=== PATIENT | male | born 1980 | race African-American/Black ===

== ENCOUNTER 2018-11-29 08:27 | Inpatient (IN) ==
[2018-11-29] MEDS ORDERED: NICODERM PATCH TD PRN (14:17)
[2018-11-29] MEDS ORDERED: TUBERSOL ID ONE (14:17)
[2018-11-29] MEDS ORDERED: DESYREL PO PRN (14:17)
[2018-11-29] MEDS ORDERED: NICOTINE GUM BUCCAL PRN (14:17)
[2018-11-29] MEDS ORDERED: SENOKOT PO PRN (14:17)
[2018-11-29] MEDS ORDERED: DULCOLAX PR PRN (14:17)
[2018-11-29] MEDS ORDERED: PHENOBARBITAL IV PRN (14:17)
[2018-11-29] MEDS ORDERED: SEROQUEL PO PRN (14:17)
[2018-11-29] MEDS ORDERED: D5W 1,000 ML IV PRN (14:17)
[2018-11-29] MEDS ORDERED: MAALOX PLUS LIQUID PO PRN (14:17)
[2018-11-29] MEDS ORDERED: MOTRIN PO PRN (14:17)
[2018-11-29] MEDS ORDERED: TYLENOL PO PRN (14:17)
[2018-11-29] MEDS ORDERED: IMODIUM PO PRN ×2 (14:17)
[2018-11-29] MEDS ORDERED: ZOFRAN IM PRN (14:17)
[2018-11-29 14:28] LABS: URINE SOURCE CLEAN CATCH
[2018-11-29 14:40] LABS: CLARITY CLEAR (CLEAR); COLOR YELLOW
[2018-11-29 14:41] LABS: BILIRUBIN URINE NEGATIVE (NEGATIVE); BLOOD URINE 2+ (NEGATIVE); GLUCOSE URINE NEGATIVE (NEGATIVE); KETONE URINE NEGATIVE (NEGATIVE); LEUKOCYTES URINE TRACE (NEGATIVE); NITRITE URINE NEGATIVE (NEGATIVE); PH URINE 6.5; PROTEIN URINE TRACE mg/dL (NEGATIVE); UROBILINOGEN URINE NORMAL
[2018-11-29] MEDS ORDERED: SINEMET 25/100 PO PRN (14:46)
[2018-11-29] MEDS ORDERED: BENTYL PO PRN (14:46)
[2018-11-29] MEDS ORDERED: ROBAXIN PO PRN (14:46)
[2018-11-29 14:56] LABS: UR AMPHETAMINES QUAL NONE DETECTED (NONE DETECT); UR BARBITUATES QUAL NONE DETECTED (NONE DETECT); UR BENZODIAZEPIN QUAL NONE DETECTED (NONE DETECT); UR CANNABINOIDS QUAL PRESUMPTIVE POSITIVE (NONE DETECT); UR COCAINE QUAL PRESUMPTIVE POSITIVE (NONE DETECT); UR METHADONE QUAL NONE DETECTED (NONE DETECT); UR METHAMPHETAMINE QUAL NONE DETECTED (NONE DETECT); UR OPIATES QUAL PRESUMPTIVE POSITIVE (NONE DETECT); UR OXYCODONE QUAL NONE DETECTED (NONE DETECT); UR PCP QUAL NONE DETECTED (NONE DETECT); UR PROPOXYPHENE QUAL NONE DETECTED (NONE DETECT); UR TCA QUAL NONE DETECTED (NONE DETECT)
[2018-11-29 15:00] LABS: URINE EPITHELIAL CELLS <10 /HPF (<10); URINE RBC <10 /HPF (<10); URINE WBC <10 /HPF (<10)
[2018-11-29 15:01] LABS: URINE BACTERIA 1+ /HFP; URINE CAST NONE SEEN /LPF; URINE CRYSTAL NONE SEEN /HPF; URINE YEAST NONE SEEN /HPF
[2018-11-29 15:07] LABS: HEMATOCRIT 34.5 % (42.0-52.0); HEMOGLOBIN 11.4 g/dL (14.0-18.0); MCH 25.6 PG (27-31); MCV 77.5 FL (81-99); MPV 9.2 FL (7.4-10.4); RBC 4.45 XMIL (4.7-6.1); RDW 14.6 % (11.5-14.5); WBC 9.07 X1000 (4.8-10.8)
[2018-11-29 15:17] LABS: INR 1.01; PROTIME 13.8 Seconds (11.0-16.0)
--- NOTE | 2018-11-29 15:19 | Diag Imaging Result Doc PS360 ---
EXAM: CHEST-2 VIEWS INDICATION: hypoxia TECHNIQUE: 2 views COMPARISON: None. FINDINGS: The lungs are grossly clear. There is no discrete pleural fluid collection or pneumothorax. The cardiomediastinal silhouette and central vasculature are grossly unremarkable. IMPRESSION: No evidence of acute pathology by plain radiograph. Electronically signed by Jose Manuel Eaton 11/29/2018 3:17 PM
[2018-11-29] MEDS ORDERED: FLU VACCINE IM ONE (15:51)
[2018-11-29 16:03] LABS: AGAP 13; ALKALINE PHOSPHATASE 64 U/L (32-122); AMYLASE 49 U/L (20-200); BUN 6 mg/dL (8-22); CALCIUM 9.1 mg/dL (8.8-10.2); CHLORIDE 97 mmol/L (98-107); COSMO 273; CREATININE 0.8 mg/dL (0.7-1.2); ESTIMATED GFR > 60; GLUCOSE 92 mg/dL (70-104); GOT 19 U/L (10-34); GPT 10 U/L (10-44); LIPASE 15 U/L (13-60); POTASSIUM 3.8 mmol/L (3.5-5.1); SODIUM 138 mmol/L (136-145); TCO2 28 mmol/L (25-35)
[2018-11-29] MEDS: DUONEB (A & A) INH PRN ×3 (16:22→23:45)
[2018-11-29] MEDS: LIBRIUM PO PRN ×2 (17:19→22:36)
[2018-11-29] MEDS: ZOFRAN ODT PO PRN (17:19)
[2018-11-29] MEDS ORDERED: SOLU-MEDROL IV ONE (17:45)
[2018-11-29] MEDS: ZOFRAN IV PRN (22:36)
[2018-11-29] MEDS: ATARAX PO PRN (22:36)
[2018-11-30] MEDS ORDERED: SUBOXONE 2 MG/0.5 MG FILM SL SCH (03:00)
[2018-11-30] MEDS: ZOFRAN IV PRN (05:22)
[2018-11-30] MEDS: ATARAX PO PRN (06:18)
[2018-11-30] MEDS: PROTONIX PO SCH (06:19)
[2018-11-30] MEDS: LIBRIUM PO PRN ×2 (06:19→17:39)
[2018-11-30] MEDS: DUONEB (A & A) INH PRN ×2 (07:57→17:38)
[2018-11-30] MEDS ORDERED: SUBUTEX SL ONE ×3 (08:41→13:15)
[2018-11-30] MEDS ORDERED: TORADOL IV PRN (08:42)
[2018-11-30] MEDS: THERA M PLUS PO SCH (10:47)
[2018-11-30] MEDS: VITAMIN B-1 PO SCH (10:47)
[2018-11-30] MEDS: FOLIC ACID PO SCH (10:47)
[2018-11-30] MEDS: ZOFRAN ODT PO PRN (21:10)
[2018-11-30] MEDS: SUBUTEX SL SCH (21:10)
[2018-12-01] MEDS: PROTONIX PO SCH (06:41)
--- NOTE | 2018-12-01 07:59 | PROGRESS NOTE ---
DATE: 11/30/2018 SUBJECTIVE: Patient seen and examined by myself on the . Initially, patient was complaining of abdominal pain, cramping, nausea, increased sweating, increased muscle aches similar to when he was in opiate withdrawal. After being given a low dose of Subutex in the a.m., at lunchtime, he notes that he is feeling a little bit better. His muscle aches have improved somewhat. Sweating has improved. PHYSICAL EXAMINATION: Vital Signs: Reviewed. General: He is awake, alert. He is in no current respiratory distress. His wheezing has all but resolved. HEENT: Normocephalic. Neck: Supple. Cardiovascular: Regular rate. Chest: Faint occasional wheezing. Good air movement. Nonlabored. Abdomen: Soft, nondistended. Extremities: Moves all extremities. ASSESSMENT: 1. Nausea and vomiting. 2. Abdominal pain. 3. Myalgias. 4. Paresthesias. 5. Opiate abuse withdrawal and stabilization. PLAN: Discussed with patient that it appears though whatever substance he was using, be it cocaine or heroin, that it may have had fentanyl laced with it. After much discussion, patient does admit that a few weeks ago something changed and he stayed more sleepy while he was using. Discussed with patient that is most likely the reason that Suboxone made him actually feel worse. We attempted Subutex early this morning and his symptoms improved. We will give him 1 more dose of Subutex at lunch at 2 mg and then increase to 4 mg Subutex tonight. We will continue to follow. cc: Marin Daly MD
[2018-12-01] MEDS: THERA M PLUS PO SCH (08:23)
[2018-12-01] MEDS: FOLIC ACID PO SCH (08:23)
[2018-12-01] MEDS: SUBUTEX SL SCH ×2 (08:23→20:58)
[2018-12-01] MEDS: VITAMIN B-1 PO SCH (08:23)
[2018-12-01] MEDS: DUONEB (A & A) INH PRN (20:10)
[2018-12-02] MEDS: PROTONIX PO SCH (06:27)
[2018-12-02] MEDS ORDERED: SUBUTEX SL ONE (09:57)
[2018-12-02] MEDS: VITAMIN B-1 PO SCH (10:28)
[2018-12-02] MEDS: FOLIC ACID PO SCH (10:28)
[2018-12-02] MEDS: THERA M PLUS PO SCH (10:28)
--- NOTE | 2018-12-02 10:55 | PROGRESS NOTE ---
DATE: 12/01/2018 SUBJECTIVE: Patient seen and examined by myself on the . Notes that the 4 mg Subutex made him feel a lot better. He is uncertain if it is lasting long enough, but certainly his symptoms are improving. Denies any nausea, denies vomiting at this point, denies abdominal pain. Denies paresthesias. Notes his muscle aches are improving. PHYSICAL EXAM: Vital Signs: Temperature 98.7, pulse 88, respiratory rate 22, BP 127/84. General: Patient is awake, alert. He is in no current respiratory distress. HEENT: Normocephalic. Neck: Supple. CV: Regular rate. Chest: Clear. Abdomen: Soft. Extremities: Moves all extremities. Neurologic: No focal changes. Skin: Warm, dry. No rashes. ASSESSMENT: 1. Nausea, vomiting, abdominal pain. 2. Myalgias. 3. Polysubstance abuse to include fentanyl, likely accidental as it was placed in his heroin. PLAN: We will continue patient on Subutex 4 mg twice a day today. We will not use an afternoon dose. We will continue to follow. Continue counseling and education. cc: Marin Daly MD
--- NOTE | 2018-12-02 11:22 | PROGRESS NOTE ---
DATE: 12/02/2018 SUBJECTIVE: Patient notes overall he is feeling better. However, the 4 mg Subutex did not last until the next dose. States his muscle aches and myalgias have improved. PHYSICAL EXAMINATION: Vital Signs: Temperature 97.9 degrees, pulse 72, respiratory 20, BP 125/79. General: Patient is awake, alert, very pleasant to talk with. He is in much less distress today than he was yesterday. HEENT: Normocephalic. Neck: Supple. Cardiovascular: Regular rate. Chest: Clear, nonlabored. Abdomen: Soft. Extremities: Moves all extremities. Neurologic: No focal changes. ASSESSMENT: 1. Nausea, vomiting. 2. Abdominal pain.. 3. Myalgias. 4. Paresthesias. 5. Paroxysmal sweating. 6. Polysubstance use and abuse. PLAN: Overall, patient has improved. We will continue treatment. We will increase Subutex to 8 mg daily. Continue counseling. If he tolerates, hopefully can be home tomorrow. cc: Marin Daly MD
[2018-12-02] MEDS: DUONEB (A & A) INH PRN (15:51)
[2018-12-02] MEDS: SUBUTEX SL SCH (21:51)
[2018-12-03] MEDS: PROTONIX PO SCH (06:20)
[2018-12-03] MEDS: DUONEB (A & A) INH PRN (07:19)
[2018-12-03 09:04] VITALS: BP 131/86
[2018-12-03] MEDS: THERA M PLUS PO SCH (09:56)
[2018-12-03] MEDS: FOLIC ACID PO SCH (09:56)
[2018-12-03] MEDS: VITAMIN B-1 PO SCH (09:56)
[2018-12-03] MEDS: SUBUTEX SL SCH (11:11)
[2018-12-03] MEDS ORDERED: PNEUMOVAX 23 IM ONE (11:11)
--- NOTE | 2018-12-03 12:55 | HISTORY AND PHYSICAL ---
CHIEF COMPLAINT: Nausea, vomiting, myalgias. HISTORY OF PRESENT ILLNESS: The patient is a 37-year-old male who notes that he has had a long history of substance abuse dating back to high school, where he used cocaine. States that, however, he would use cocaine for a few times, and then stay sober. He states he typically used after binge drinking to "wake back up." States, however, some friends got him started on heroin, and he has not been able to take the habit, and notes that he has had increasing requirements for heroin. He states a few weeks ago that he had an episode where he felt like he had taken too much or maybe it was simply stronger, and he was very sleepy and had difficulty staying awake, and that it scared him, and that was the impetus for him to decide to get clean. SOCIAL HISTORY: He is single. He is currently unemployed. He lives at home in [place]. PAST MEDICAL HISTORY: He has no chronic medical problems. MEDICATIONS: None. ALLERGIES: None. REVIEW OF SYSTEMS: CINA score is 14 secondary to nausea, vomiting, abdominal pain, diarrhea, paroxysmal sweating, frequent fatigue, insomnia, frequent yawning, runny nose, watery eyes. He has been anxious, nervous. He has been unable to sit still. He has had a decreased oral intake over the past few weeks. Denies any chest pain, palpitations. Denies any fevers or chills. Denies dysuria, frequency, or urgency. Denies constipation, melena, hematochezia. SUBSTANCE ABUSE HISTORY: The patient was in [facility] 21[facility] in 2011, and then [facility] for 90 days in 2011. He states he stayed sober for 2 years. Notes that he wants to get his life back under control. He is tired of using drugs and tired of the consequences that it is causing him and his family. He started using cocaine at 19 in high school. He has been snorting a half gram every day to every other day. Started opiates at age 37, currently using a gram of heroin every day. FAMILY HISTORY: Noncontributory. PHYSICAL EXAMINATION: GENERAL: He is awake, alert, oriented. He is in no current respiratory distress. VITAL SIGNS: Reviewed and stable. HEENT: Normocephalic. NECK: Supple. CARDIOVASCULAR: Regular rate. No murmurs. CHEST: Clear. ABDOMEN: Soft. EXTREMITIES: Moves all extremities. NEUROLOGIC: No focal changes. SKIN: Warm and dry. No rashes. ASSESSMENT: 1. Nausea and vomiting. 2. Abdominal pain. 3. Myalgias. 4. Paresthesias. 5. Paroxysmal sweating. 6. Polysubstance use and abuse. PLAN: Discussed with the patient the importance of getting his life back under control. We will start him on Suboxone, and will continue to follow. Will begin counseling. Further orders as needed. cc: Marin Daly MD MTDD
--- NOTE | 2018-12-03 13:26 | DISCHARGE SUMMARY ---
ADMISSION DATE: 11/29/2018 DISCHARGE DATE: 12/03/2018 DISCHARGE DIAGNOSES: 1. Nausea and vomiting. 2. Abdominal pain. 3. Myalgias. 4. Paresthesias. 5. Polysubstance use and abuse. CONSULTATIONS: None. PROCEDURES: None. BRIEF HOSPITAL COURSE: The patient is a 37-year-old male who presented to [facility] program secondary to nausea, vomiting, abdominal pain. He was withdrawing from heparin. He was initially placed on Suboxone, but his symptoms instantly became worse. At that point we realized that he had been taking Suboxone that had been laced apparently with fentanyl. The patient does remember a change in his heroin. We switched to Subutex and used a very small dose and slowly, gradually increased from there. The patient's symptoms began to improve. On discharge he was on 8 mg twice daily and he was much improved. He had no sweating, no nausea. His paresthesias had resolved. DISPOSITION: The patient will be discharged home. Although initially he wanted to be discharged on no medication, that does not appear to be in his best option. We discharged him on 8 mg twice daily of Subutex. Prescription was written. Discussed with patient that after 2 weeks if he is still doing well at home, how to begin weaning. Discussed with patient as well that I expect he will need at least 1 office visit so we can write a 2 mg dose for him to allow him to continue to safely wean. Discussed that he still needs outpatient life counseling as well as drug counseling. Discussed that he needs to avoid all persons, places, and situations in which he has been using and abusing in the past. We will continue to follow. cc: Marin Daly MD
== END 2018-12-03 11:15 | disposition home or self-care (01) | DRG 897 ==
LOC: P.MEDSURG 13:14
PROVIDERS: ADMIT Family Medicine; ATTEND Family Medicine
CPT/HCPCS: 71020; 71046; 80053; 80104; 80301; 80305; 80307; 80320; 81001; 82055; 82150; 83690; 85027; 85610; 86580; 90686; 90732; 94640; 94761; A9270; G0431; G0434; G0477; G0480; G6040; J2405; J2930